=== PATIENT | male | born 1975 | race Caucasian/White ===

== ENCOUNTER 2022-07-11 14:57 | Inpatient (IN) | payer OTHER ==
[~2022-07-11] VITALS: Ht 193 cm; Wt 127.0 kg
[~2022-07-11 14:57] MED LIST: BACTRIM DS TAB1 EACH PO; CEPHALEXIN500 MG PO
[2022-07-11 16:20] LABS: HEMOGLOBIN 14.7 gm/dl (14.0-17.5); RED BLOOD COUNT 4.57 M/UL (4.20-5.50); WHITE BLOOD COUNT 20.8 K/UL (4.5-11.0)
[2022-07-12 05:26] LABS: HEMOGLOBIN 11.6 gm/dl (14.0-17.5); RED BLOOD COUNT 3.7 M/UL (4.20-5.50); WHITE BLOOD COUNT 10.3 K/UL (4.5-11.0)
[2022-07-12] MEDS ORDERED: CLONIDINE HCL0.1 MG PO (14:17)
[2022-07-12] MEDS ORDERED: IBUPROFEN200 MG PO (14:18)
[2022-07-12] MEDS ORDERED: OMEPRAZOLE20 MG PO (14:21)
[2022-07-12] MEDS ORDERED: HYDROCHLOROTHIA25 MG PO (14:21)
[2022-07-12] MEDS ORDERED: ACETAMINOPHEN325 MG PO (14:24)
[2022-07-12] MEDS ORDERED: MELOXICAM7.5 MG PO (14:24)
[2022-07-12] MEDS ORDERED: METOPROLOL TART50 MG PO (14:25)
[2022-07-12] MEDS ORDERED: NITROGLYCERIN0.4 MG SL (14:28)
[2022-07-12] MEDS ORDERED: SIMVASTATIN10 MG PO (14:29)
[2022-07-12] MEDS ORDERED: PRAMIPEXOLE0.125 MG PO (14:29)
[2022-07-12] MEDS ORDERED: LISINOPRIL40 MG PO (14:30)
[2022-07-12] MEDS ORDERED: HYDRALAZINE HCL50 MG PO (14:31)
[2022-07-12] MEDS ORDERED: ASPIRIN EC81 MG PO (14:33)
[2022-07-12] MEDS ORDERED: METFORMIN HCL500 MG PO (14:35)
[2022-07-12] MEDS ORDERED: AMLODIPINE BESY10 MG PO (14:35)
[2022-07-12 15:38] LABS: GAMMA GLUTAMYL TRANSPEPTIDASE 72 U/L (7-64)
[2022-07-13 05:30] LABS: HEMOGLOBIN 12.2 gm/dl (14.0-17.5); RED BLOOD COUNT 3.84 M/UL (4.20-5.50)
[2022-07-13 05:32] LABS: WHITE BLOOD COUNT 7.3 K/UL (4.5-11.0)
[2022-07-14 08:32] LABS: HEMOGLOBIN 12.8 gm/dl (14.0-17.5); RED BLOOD COUNT 4.03 M/UL (4.20-5.50); WHITE BLOOD COUNT 7.4 K/UL (4.5-11.0)
[2022-07-15 05:01] LABS: HEMOGLOBIN 13.1 gm/dl (14.0-17.5); RED BLOOD COUNT 4.12 M/UL (4.20-5.50)
[2022-07-15 20:12] LABS: HBSAG SCREEN Negative (Negative); HCV AB >11.0 (0.0-0.9); HEP A AB, IGM Negative (Negative); HEP B CORE AB, IGM Negative (Negative); HEPATITIS C QUANTITATION HCV Not Detected IU/mL (.)
[2022-07-16 03:14] LABS: HEMOGLOBIN 12.7 gm/dl (14.0-17.5); RED BLOOD COUNT 4.04 M/UL (4.20-5.50); WHITE BLOOD COUNT 5.7 K/UL (4.5-11.0)
[2022-07-16] MEDS ORDERED: DOXYCYCLINE HY100 M2 PO (08:37)
== END 2022-07-16 10:48 | disposition short-term general hospital (02) | DRG 872 ==
LOC: ER1 14:57 → CDU 20:43 → M/S 20:43
PROVIDERS: Internal Medicine; Internal Medicine Nephrology; Nurse Practitioner; Physician Assistant; ADMIT Internal Medicine
DX: A41.02 Sepsis due to Methicillin resistant Staphylococcus aureus (principal); N17.9 Acute kidney failure, unspecified; L03.312 Cellulitis of back [any part except buttock and flank]; L02.411 Cutaneous abscess of right axilla; L03.313 Cellulitis of chest wall; Z20.822 Contact with and (suspected) exposure to COVID-19; E78.5 Hyperlipidemia, unspecified; R74.01 Elevation of levels of liver transaminase levels; R65.20 Severe sepsis without septic shock; I12.9 Hypertensive chronic kidney disease with stage 1 through stage 4 chronic kidney disease, or unspecified chronic kidney disease; I25.10 Atherosclerotic heart disease of native coronary artery without angina pectoris; E11.22 Type 2 diabetes mellitus with diabetic chronic kidney disease; N18.9 Chronic kidney disease, unspecified; Z79.01 Long term (current) use of anticoagulants; Z79.82 Long term (current) use of aspirin; Z79.4 Long term (current) use of insulin; Z90.49 Acquired absence of other specified parts of digestive tract; Z98.890 Other specified postprocedural states; I25.2 Old myocardial infarction
CPT/HCPCS: 36415; 71250; 80048; 80053; 80074; 80202; 80307; 81001; 82436; 82550; 82553; 82570; 82962; 82977; 83036; 83605; 83735; 84133; 84156; 84300; 85025; 85027; 85652; 86060; 86140; 86160; 87040; 87070; 87077; 87186; 87205; 89050; 93005; 96365; 96367; 96372; 96375; 96376; 99284; G0480; J0690; J0696; J1170; J1644; J2270; J2543; J3370; J7030; J7070